=== PATIENT | female | born 1950 | race Caucasian/White ===

== ENCOUNTER → 2023-11-15 13:11 | Outpatient (REF) | payer MEDICARE, SELFPAY | LOC: RAD 13:11 | PROVIDERS: ATTENDING PHYSICIAN Family Medicine | DX: K57.92 Diverticulitis of intestine, part unspecified, without perforation or abscess without bleeding (principal) | CPT/HCPCS: 74178; Q9967 ==

== ENCOUNTER → 2024-04-22 08:49 | Day surgery (SDC) | payer MEDICARE, SELFPAY ==
[2024-04-22 10:42] VITALS: BMI 33.9
--- NOTE | 2024-04-22 13:14 | ITS.CL.CARDI ---
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
Cardioversion
Procedure Report:
Date of Procedure: Apr 22 2024
Procedure: Cardioversion
Indication: Symptomatic atrial fibrillation
Performing Physician: Miki Kline DO, FACC
Technique: The patient was brought to the holding area. Signed informed consent was obtained. A time out was called and performed. The patient was anesthetized by the anesthesia service. Anticoagulation status was reviewed and appropriate. R2 pads
were placed anteriorly and posteriorly. A 225 J synchronized biphasic shock restored normal sinus rhythm without significant bradycardia. There were no complications.
Conclusion: Uncomplicated cardioversion from atrial fibrillation to sinus rhythm.
Recommendation: Routine post cardioversion care. 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
== END ==
LOC: CATH 08:49
PROVIDERS: ATTENDING PHYSICIAN Nuclear Medicine Nuclear Cardiology; FAMILY PHYSICIAN Family Medicine; OTHER PHYSICIAN Internal Medicine Cardiovascular Disease
DX: I48.0 Paroxysmal atrial fibrillation (principal); I10 Essential (primary) hypertension; E78.5 Hyperlipidemia, unspecified; E11.9 Type 2 diabetes mellitus without complications; Z79.01 Long term (current) use of anticoagulants; Z79.84 Long term (current) use of oral hypoglycemic drugs
CPT/HCPCS: 92960; 93005

== ENCOUNTER → 2024-05-24 08:09 | Outpatient (REF) | payer MEDICARE, SELFPAY ==
[2024-05-24 10:03] LABS: Blood Urea Nitrogen 13 mg/dl (7-17); Calcium 9.3 mg/dl (8.4-10.2); Carbon Dioxide 25 mmol/L (22-30); Chloride 99 mmol/L (98-107); Glucose 235 mg/dl (70-99); Sodium 137 mmol/L (135-145); eGFR > 60.00
== END ==
LOC: RCS 08:09
PROVIDERS: ATTENDING PHYSICIAN Nurse Practitioner; FAMILY PHYSICIAN Family Medicine
DX: I48.0 Paroxysmal atrial fibrillation (principal); R06.02 Shortness of breath
CPT/HCPCS: 36415; 80048; 93306